=== PATIENT | female | born 1975 | race Two or more races ===

== ENCOUNTER 2025-02-16 13:19 | Emergency (ER) | payer OTHER ==
[~2025-02-16] VITALS: Ht 152.4 cm; Wt 56.7 kg
[2025-02-16] MEDS ORDERED: TOPROL XL25 M1 (14:37)
[2025-02-16 14:38] VITALS: BP 110/73; O2SAT 98
[2025-02-16] MEDS ORDERED: CRESTOR40 MG (14:38)
[2025-02-16] MEDS ORDERED: PEPCID AC20 MG PO (17:44)
== END 2025-02-16 18:08 ==
LOC: ER 13:19
DX: K22.89 Other specified disease of esophagus (principal); I10 Essential (primary) hypertension